=== PATIENT | male | born 1970 | race African-American/Black ===

== ENCOUNTER 2021-12-24 22:33 | Emergency (ER) | payer OTHER ==
[~2021-12-24] VITALS: Ht 170.2 cm; Wt 68.0 kg
[2021-12-24] MEDS ORDERED: LIDOCAINE 1%-EPI 1:100,000 20 ML VIAL ONE (22:50)
[2021-12-24] MEDS ORDERED: SODIUM BICARBONATE 4.2 % (NEUT) 5 ML VIAL ONE (22:50)
[2021-12-24] MEDS ORDERED: NEOMY/BACITRA/POLYMYXIN B OINT UD PACKET TP ONE ×2 (23:11→23:15)
[2021-12-24] MEDS ORDERED: SODIUM BICARBONATE 4.2 % (NEUT) 5 ML VIAL TP ONE (23:15)
[2021-12-24] MEDS ORDERED: LIDOCAINE 1%-EPI 1:100,000 20 ML VIAL IJ ONE (23:15)
[2021-12-24 23:25] VITALS: BP 149/77
--- NOTE | 2021-12-24 23:25 | NUR ---
Patient discharged to home in stable condition with partner taking patient home. Written and verbal after care instructions given. Patient verbalizes understanding of instructions. Stressed follow up or return to ER for worsening s/s.
== END 2021-12-24 23:26 | disposition home or self-care (01) ==
LOC: ER 22:39
DX: S01.111A Laceration without foreign body of right eyelid and periocular area, initial encounter (principal); W11.XXXA Fall on and from ladder, initial encounter; W20.8XXA Other cause of strike by thrown, projected or falling object, initial encounter; Y93.H1 Activity, digging, shoveling and raking; Y92.89 Other specified places as the place of occurrence of the external cause
CPT/HCPCS: 99282; 12011; J3490 ×2; A4663